=== PATIENT | female | born 1940 | race African-American/Black ===

== ENCOUNTER 2021-02-07 15:37 | Emergency (ER) | payer MEDICARE ==
[~2021-02-07] VITALS: Ht 170.2 cm; Wt 81.6 kg
[2021-02-07 17:09] LABS: BASOPHILS # (AUTO) 0.1 (0.0-0.1); BASOPHILS % 0.7 % (0.0-1.0); EOSINOPHILS # (AUTO) 0.2 (0.0-0.4); EOSINOPHILS % 1.5 % (0.0-6.0); HEMATOCRIT 35.2 % (34.2-44.1); HEMOGLOBIN 10.4 g/dL (12.0-16.0); LYMPHOCYTES # (AUTO) 1.9 (1.0-3.2); LYMPHOCYTES % 14.6 % (18.0-39.1); MEAN CORPUSCULAR HEMOGLOBIN 25.2 pg (28-32); MEAN CORPUSCULAR HGB CONC 29.5 g/dL (31-35); MEAN CORPUSCULAR VOLUME 85.2 fL (81-99); MONOCYTES % 7.4 % (4.4-11.3); NEUTROPHILS # (AUTO) 9.9 (2.1-6.9); NEUTROPHILS % 75.4 % (38.7-80.0); PLATELET COUNT 443 x10e3/uL (140-360); RED BLOOD COUNT 4.13 x10e6/uL (3.6-5.1); RED CELL DISTRIBUTION WIDTH 18.3 % (11.7-14.4)
[2021-02-07 17:33] LABS: ALBUMIN 3.3 g/dL (3.5-5.0); ALBUMIN/GLOBULIN RATIO 0.6 (0.8-2.0); ANION GAP 15.5 mmol/L (8-16); CREATININE, SERUM 1.27 mg/dL (0.57-1.11); POTASSIUM 4.5 mmol/L (3.5-5.1)
[2021-02-07] MEDS ORDERED: SODIUM CHLORIDE 0.9% 1000ML 1,000 ML IV STA (17:50)
[2021-02-07] MEDS ORDERED: SODIUM CHLORIDE 0.9% 50ML 50 ML ONE (18:07)
[2021-02-07] MEDS ORDERED: IOPAMIDOL 370 MG/ML 200 ML INFUS..BTL INJ ONE (18:07)
[2021-02-07] MEDS ORDERED: VENTOLIN HFA18 GM INH (19:15)
[2021-02-07] MEDS ORDERED: PREDNISONE20 MG PO (19:15)
[2021-02-07 22:38] VITALS: BP 141/77
== END 2021-02-07 19:25 | disposition home or self-care (01) ==
LOC: ER 15:48
DX: R06.00 Dyspnea, unspecified (principal); R05.9 Cough, unspecified; R53.1 Weakness; Z20.822 Contact with and (suspected) exposure to COVID-19; R94.31 Abnormal electrocardiogram [ECG] [EKG]
CPT/HCPCS: 36415; 71045; 71260; 80053; 84484; 85025; 85379; 93005; 99283; J7030; Q9967; U0002